=== PATIENT | female | born 1990 | race Caucasian/White ===

== ENCOUNTER 2018-06-11 08:00 | Outpatient (CLI) | payer OTHER | END 2018-06-11 23:59 | LOC: LAB.R 08:00 | PROVIDERS: ATTEND Registered Nurse | DX: Z11.3 Encounter for screening for infections with a predominantly sexual mode of transmission (principal) | CPT/HCPCS: 87491; 87591 ==

== ENCOUNTER 2018-06-11 14:24 | Outpatient (CLI) | payer OTHER ==
[2018-06-11 16:29] LABS: THYROID STIMULATING HORMONE 3.25 uIU/mL (0.34-5.60)
[2018-06-11 16:35] LABS: PROLACTIN 6.08 ng/mL
== END 2018-06-11 14:25 | disposition home or self-care (01) ==
LOC: LAB 14:24
PROVIDERS: ATTEND Registered Nurse
DX: N91.1 Secondary amenorrhea (principal)
CPT/HCPCS: 36415; 81599; 82626; 84146; 84402; 84403; 84443

== ENCOUNTER 2018-11-26 09:50 | Outpatient (CLI) | payer OTHER ==
[2018-11-26 13:31] LABS: BASOPHILS % (AUTO) 0.2 %; EOSINOPHILS # (AUTO) 0.1 10^3/uL (0.0-0.7); EOSINOPHILS % (AUTO) 1.2 %; HGB - HEMOGLOBIN 13.2 g/dL (12.0-16.0); LYMPHOCYTES # (AUTO) 2.1 10^3/uL (1.5-3.5); LYMPHOCYTES % (AUTO) 29.4 %; MEAN CORPUSCULAR HEMOGLOBIN 29.8 pg (27.0-31.0); MEAN CORPUSCULAR HGB CONC 34.1 g/dL (32.0-36.0); MEAN CORPUSCULAR VOLUME 87.4 fL (81.0-99.0); MEAN PLATELET VOLUME 8.3 fL (7.9-10.8); MONOCYTES # (AUTO) 0.4 10^3/uL (0.0-1.0); NEUTROPHILS # (AUTO) 4.5 10^3/uL (1.5-6.6); NEUTROPHILS % (AUTO) 63.2 %; PLT - PLATELET COUNT 342 10^3/uL (130-450); RED BLOOD COUNT 4.41 10^6/uL (4.20-5.40); WHITE BLOOD COUNT 7.2 x10^3/uL (4.8-10.8)
[2018-11-26 13:45] LABS: CHOL/HDL RATIO 2.7 (<4.4); CHOLESTEROL 170 mg/dL; GLUCOSE 83 mg/dL (70-100); HDL CHOLESTEROL 64 mg/dL; LDL CHOLESTEROL,CALCULATED 89 mg/dL; LDL/HDL RATIO 1.4 (<4.4); VLDL CHOLESTEROL 17 mg/dL
[2018-11-26 13:48] LABS: HB2 TOTAL 14.1 g/dL; HEMOGLOBIN A1C 0.43 g/dL; HEMOGLOBIN A1C % 4.9 % (4.6-6.2); T4 (THYROXINE) 11.24 ug/dL (6.09-12.23)
[2018-11-26 13:52] LABS: THYROID STIMULATING HORMONE 3.06 uIU/mL (0.34-5.60)
== END 2018-11-26 23:59 | disposition home or self-care (01) ==
LOC: LAB.N 09:50
PROVIDERS: ATTEND Registered Nurse
DX: Z00.00 Encounter for general adult medical examination without abnormal findings (principal)
CPT/HCPCS: 36415; 80061; 82947; 83036; 83721; 84436; 84443; 85025

== ENCOUNTER 2019-03-13 17:29 | Emergency (ER) | payer OTHER ==
[2019-03-13 18:02] VITALS: BP 126/86
[2019-03-13] MEDS ORDERED: AMOX/CLAV 875 MG/125 MG TABLET PO STA (18:37)
--- NOTE | 2019-03-13 18:40 | ED Physician Documentation ---
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 She is right-hand dominant. Her tetanus status is up-to-date. The cat's rabies status is up-to-date. Review of Systems Constitutional: denies: Fever Respiratory: denies: Dyspnea GI: denies: Nausea, Vomiting Skin: reports: Bite / sting (Right thumb.) Musculoskeletal: reports: Extremity pain (Right thumb.) Neurologic: denies: Focal weakness, Numbness PD PAST MEDICAL HISTORY - Past Medical History Endocrine/Autoimmune: None - Past Surgical History Past Surgical History: Yes HEENT: Myringotomy (tubes) - Present Medications Home Medications: Ambulatory Orders Medication Instructions Recorded Confirmed FLUoxetine [PROzac] 40 mg DAILY 08/20/16 08/20/16 traZODone [Desyrel] 25 mg DAILY 08/20/16 08/20/16 Amox/Clav 875/125 [Augmentin] 1 each PO Q12H #10 tablet 03/13/19 - Allergies Allergies/Adverse Reactions: Allergies Allergy/AdvReac Type Severity Reaction Status Date / Time No Known Drug Allergies Allergy Verified 03/13/19 18:02 - Social History Does the pt smoke?: No Smoking Status: Never smoker Does the pt drink ETOH?: Yes Does the pt have substance abuse?: No - Immunizations Immunizations are current?: Yes PD ED PE NORMAL - Vitals Vital signs reviewed: Yes (normal) - General General: Alert and oriented X 3, Well developed/nourished - HEENT HEENT: Atraumatic - Respiratory Respiratory: No respiratory distress - Derm Derm: No rash - Extremities Extremities: Other (There are 2 small puncture wounds over the proximal phalanx of the right thumb, consistent with cat bite wounds. There is no soft tissue swelling or erythema. She has full flexion and extension at the IP and MP joints. Distal neurovascular is intact.) - Neuro Neuro: Alert and oriented X 3, No motor deficit, No sensory deficit Results - Vitals Vitals: Oxygen O2 Source Room air PD MEDICAL DECISION MAKING - ED course Complexity details: considered differential, d/w patient ED course: The patient's presentation is significant for cat bite puncture wounds to the right thumb. Her physical examination does not suggest fracture or foreign body, and I do not think imaging studies are clinically indicated. Treatment in the emergency department included administration of Augmentin 875 mg orally. She is being discharged with prescription for Augmentin. I discussed with her the expected course of injury, antibiotic treatment and outpatient follow-up, as well as potentially worrisome signs or symptoms that should prompt reevaluation in the emergency department. Departure - Departure Disposition: Home, Self Care Clinical Impression: Cat bite of right thumb Qualifiers: Encounter type: initial encounter Qualified Code(s): S61.051A - Open bite of right thumb without damage to nail, initial encounter Condition: Stable Instructions: ED Bite Animal General Follow-Up: [facility] Sandoval [Provider Group] Prescriptions: Amox/Clav 875/125 [Augmentin] 1 each PO Q12H #10 tablet Comments: Take Augmentin twice daily as prescribed. Keep the left hand elevated as much the time as possible. You can use Tylenol or ibuprofen if needed for discomfort. Follow-up with your primary physician or return to the emergency department if you develop increasing redness, swelling, lymphangitic streaking, or otherwise worsening symptoms. Discharge Date/Time: 03/13/19 18:51
== END 2019-03-13 18:51 | disposition home or self-care (01) ==
LOC: ED 17:29
DX: S61.051A Open bite of right thumb without damage to nail, initial encounter (principal); W55.01XA Bitten by cat, initial encounter; Y93.K9 Activity, other involving animal care; Y92.59 Other trade areas as the place of occurrence of the external cause; Y99.0 Civilian activity done for income or pay
CPT/HCPCS: 99283; A9270

== ENCOUNTER 2019-04-27 18:42 | Emergency (ER) | payer OTHER ==
[2019-04-27 19:00] LABS: BILIRUBIN,URINE NEGATIVE (NEGATIVE); GLUCOSE, URINE (UA) NEGATIVE (NEGATIVE); KETONES,URINE (UA) NEGATIVE (NEGATIVE); LEUKOCYTE ESTERASE, URINE SMALL (NEGATIVE); NITRITE,URINE NEGATIVE (NEGATIVE); OCCULT BLOOD,URINE MODERATE (NEGATIVE); PROTEIN,URINE 100 mg/dL (NEGATIVE); UROBILINOGEN,URINE 0.2 (NORMAL) E.U./dL (NORMAL)
[2019-04-27 19:02] LABS: CLARITY,URINE HAZY (CLEAR); HCG UR QUAL NEGATIVE
[2019-04-27 19:17] LABS: BACTERIA,URINE Many /HPF (None Seen); RBC,URINE TNTC /HPF (0-5); SQUAMOUS EPITHELIAL CELL,UR NONE SEEN (<= Few)
[2019-04-27] MEDS ORDERED: NITROFURANTOIN MACRO 100 MG CAPSULE PO STA (19:25)
--- NOTE | 2019-04-27 19:27 | ED Physician Documentation ---
PD HPI FEMALE - Stated complaint Stated Complaint: FEMALE - Chief complaint Chief Complaint: UTI - History obtained from History obtained from: Patient - History of Present Illness Timing - onset: Today (urinary frequency and dysuria, no back pain/nausea) Review of Systems Constitutional: denies: Fever, Chills Respiratory: denies: Dyspnea, Cough GI: denies: Abdominal Pain, Nausea, Vomiting PD PAST MEDICAL HISTORY - Past Medical History Past Medical History: Yes Endocrine/Autoimmune: HyPOthyroidism - Past Surgical History Past Surgical History: Yes HEENT: Myringotomy (tubes) - Present Medications Home Medications: Ambulatory Orders Medication Instructions Recorded Confirmed FLUoxetine [PROzac] 40 mg DAILY 08/20/16 08/20/16 traZODone [Desyrel] 25 mg DAILY 08/20/16 08/20/16 Amox/Clav 875/125 [Augmentin] 1 each PO Q12H #10 tablet 03/13/19 Nitrofurantoin Monohyd/M-Cryst 100 mg PO BID #10 capsule 04/27/19 [Macrobid 100 mg Capsule] - Allergies Allergies/Adverse Reactions: Allergies Allergy/AdvReac Type Severity Reaction Status Date / Time No Known Drug Allergies Allergy Verified 04/27/19 18:47 - Social History Does the pt smoke?: No Smoking Status: Never smoker Does the pt drink ETOH?: Yes Does the pt have substance abuse?: No Substance Use and Type: Marijuana - Immunizations Immunizations are current?: Yes PD ED PE NORMAL - Vitals Vital signs reviewed: Yes - General General: Alert and oriented X 3, No acute distress - Abdomen Abdomen: Soft, Non tender - Back Back: No CVA TTP - Neuro Neuro: Alert and oriented X 3, Normal speech Results - Vitals Vitals: Vital Signs - 24 hr 04/27/19 18:45 Temperature 36.7 C Heart Rate 96 Respiratory 20 Rate Blood Pressure 124/87 H O2 Saturation 100 Oxygen O2 Source Room air - Labs Labs: Laboratory Tests 04/27/19 18:55 Urine Color YELLOW Urine Clarity HAZY Urine pH 7.0 Ur Specific [place] 1.010 Urine Protein 100 H Urine Glucose (UA) NEGATIVE Urine Ketones NEGATIVE Urine Occult Blood MODERATE H Urine Nitrite NEGATIVE Urine Bilirubin NEGATIVE Urine Urobilinogen 0.2 (NORMAL) Ur Leukocyte Esterase SMALL H Urine RBC TNTC H Urine WBC 11-25 H Ur Squamous Epith Cells NONE SEEN Urine Bacteria Many H Ur Microscopic Review INDICATED Urine Culture Comments INDICATED Urine HCG, Qual NEGATIVE Departure - Departure Disposition: 01 Home, Self Care Clinical Impression: Cystitis Condition: Good Record reviewed to determine appropriate education?: Yes Instructions: ED UTI Cystitis Female Prescriptions: Nitrofurantoin Monohyd/M-Cryst [Macrobid 100 mg Capsule] 100 mg PO BID #10 capsule Comments: We will culture your urine, the results should be done in 48-72 hours. If an antibiotic change is necessary we will call you. Return if worse in the meantime, especially if you develop increasing flank pain, fevers, or cannot keep down the medication.
[2019-04-27 19:34] VITALS: BP 128/86
== END 2019-04-27 19:33 | disposition home or self-care (01) ==
LOC: ED 18:42
DX: N30.90 Cystitis, unspecified without hematuria (principal)
CPT/HCPCS: 81001; 81025; 87086; 87181; 99283; A9270; 81003